=== PATIENT | female | born 2000 | race Caucasian/White ===

== ENCOUNTER 2024-04-06 21:56 | Emergency (ER) | payer OTHER ==
[~2024-04-06] VITALS: Ht 154.9 cm; Wt 54.5 kg
[2024-04-06 22:06] VITALS: TEMP 98.9
[2024-04-06] MEDS: PERTUSS(ACELL),DIPH,TET/PF 0.5 ML SYRINGE [ADULT] IM. ONE (23:46)
[2024-04-06] MEDS: LIDOCAINE 1% 10 ML VIAL ID ONE (23:46)
[2024-04-07 00:30] VITALS: BP 124/81; PULSE 90; RESP 18; O2SAT 100
== END 2024-04-07 00:59 | disposition home or self-care (01) ==
LOC: EMS 21:56
DX: S61.210A Laceration without foreign body of right index finger without damage to nail, initial encounter (principal); W26.0XXA Contact with knife, initial encounter; Y93.89 Activity, other specified; Y92.89 Other specified places as the place of occurrence of the external cause; Y99.8 Other external cause status
CPT/HCPCS: 99283; 90715; 90471; 12001; J3490

== ENCOUNTER 2024-07-13 22:23 | Emergency (ER) | payer BC, OTHER ==
[~2024-07-13] VITALS: Ht 162.6 cm; Wt 63.6 kg
[2024-07-13 22:31] VITALS: TEMP 98.3
[2024-07-13] MEDS ORDERED: KETOROLAC TROMETHAMINE 30 MG/ML VIAL IVP ONE (22:45)
[2024-07-13] MEDS: SODIUM CHLORIDE 0.9% 1,000 ML IV ONE (22:56)
[2024-07-13] MEDS: ACETAMINOPHEN 500 MG TABLET PO ONE (22:56)
[2024-07-13] MEDS: KETOROLAC TROMETHAMINE 15 MG/ML VIAL IVP ONE (22:56)
[2024-07-13 23:01] LABS: BASOPHILS % (AUTO) 0.2 % (0.0-2.0); EOSINOPHILS % (AUTO) 0.5 % (1.0-6.0); HEMATOCRIT 37.6 % (36-46); HEMOGLOBIN 12.8 g/dL (12.0-16.0); LYMPHOCYTES # (AUTO) 1.6 K/uL (1.0-4.8); LYMPHOCYTES % (AUTO) 33.1 % (22.0-44.0); MEAN CORPUSCULAR HEMOGLOBIN 32.5 pg (26.0-34.0); MEAN CORPUSCULAR HGB CONC 34.1 G/dL (31.0-37.0); MEAN CORPUSCULAR VOLUME 95 fL (80-100); MONOCYTES # (AUTO) 0.9 K/uL (0.1-1.0); NEUTROPHILS # (AUTO) 2.4 K/uL (1.8-7.7); NEUTROPHILS % (AUTO) 47.2 % (40.0-70.0); PLATELET COUNT (AUTO) 173 K/uL (150-450); RED BLOOD CELL COUNT(AUTO) 3.95 MIL/uL (4.00-5.20); RED CELL DISTRIBUTION WIDTH 12.5 % (11.5-14.5)
[2024-07-13 23:20] LABS: CALCIUM, TOTAL 9.4 mg/dL (8.8-10.5); CARBON DIOXIDE 27 mmol/L (22-29); CREATININE 0.62 mg/dL (0.60-1.30); GLOMERULAR FILTR. RATE CALC > 60 mL/min (>60); GLUCOSE,RANDOM 96 mg/dL (70-110); POTASSIUM 3.1 mmol/L (3.5-5.1); SODIUM SERUM 141 mmol/L (136-145); UREA NITROGEN, BLOOD 9 mg/dL (7-18)
[2024-07-14] MEDS: POTASSIUM CHLORIDE 20 MEQ ER TABLET PO ONE (00:49)
[2024-07-14 02:56] VITALS: BP 110/60; PULSE 98; RESP 22; O2SAT 98
[2024-07-14 13:56] LABS: ANION GAP 9 mmol/L (8-16); CHLORIDE 105 mmol/L (98-107)
== END 2024-07-14 02:57 | disposition home or self-care (01) ==
LOC: EMS 23:14
DX: N83.202 Unspecified ovarian cyst, left side (principal); E87.6 Hypokalemia; R42 Dizziness and giddiness; R55 Syncope and collapse; R11.0 Nausea
CPT/HCPCS: 99285; 96374; 76830; 76856; 96361; 80048; 84703; 85025; 36415; J1885; J7030